=== PATIENT | male | born 1980 | race Asian ===

== ENCOUNTER 2018-06-10 08:34 | Outpatient (CLI) | payer OTHER ==
--- NOTE | 2018-06-10 10:07 | CT ---
NONCONTRAST CT ABDOMEN AND PELVIS: DATE: 06/10/2018. HISTORY: Gross hematuria, bilateral back pain. COMPARISON: None available. FINDINGS: The lung bases are clear. Calcified granuloma is seen in the right hepatic lobe. There is diminished attenuation of the liver likely attributable to diffuse fatty infiltration with fatty sparing adjacent to the gallbladder. There are 2 nonobstructing calculi within the inferior pole left kidney, the largest measuring 10 mm with the second calculus measuring approximately 6 mm in maximal dimensions. No right renal calculus is present. There is no evidence of hydronephrosis, and no ureteral calculi are seen bilaterally. The urinary bladder is decompressed but otherwise grossly normal in appearance. The spleen, pancreas, and bilateral adrenal glands demonstrate a grossly normal nonenhanced CT appear ance. The appendix is visualized and normal in caliber. No free fluid, fluid collection, or lymphadenopathy is seen in the abdomen or pelvis. A bone island is seen within the L3 vertebral body. Osseous structures otherwise have a normal appea bharath. IMPRESSION: 1. Nonobstructing left renal calculi. 2. No right renal calculus or bilateral ureteral calculi are visualized, and there is no hydronephro sis. 3. Fatty infiltration of the liver with fatty sparing adjacent to the gallbladder. 4. No CT evidence of appendicitis. POS: [facility]
== END 2018-06-10 08:35 | disposition home or self-care (01) ==
LOC: SCSCT 08:34
PROVIDERS: ATTEND Urology
DX: R31.0 Gross hematuria (principal); N20.0 Calculus of kidney; K76.0 Fatty (change of) liver, not elsewhere classified
CPT/HCPCS: 74176